=== PATIENT | female | born 1980 | race Caucasian/White ===

== ENCOUNTER 2021-10-31 14:24 | Emergency (ER) | payer OTHER ==
[~2021-10-31] VITALS: Ht 170.2 cm; Wt 73.0 kg
[2021-10-31 14:33] VITALS: BP 111/56
--- NOTE | 2021-10-31 15:13 | PHYS DOC ---
Past History Past Surgical History: No Surgical History (IGNACIO HOWARD) Alcohol Use: Occasionally (IGNACIO HOWARD) General Adult EDM: Chief Complaint: UPPER EXTREMITY INJURY HPI: HPI: Patient is a 40 year old female who presents with right upper extremity pain status post fall while chasing a puppy. Patient states she was chasing a new puppy at home wearing socks without shoes, so she slipped. Patient does not believe she outstretched her arm to catch herself, but rather landed on her arm. She reports pain from the shoulder down to her fingers, though it is most intense in the forearm. Patient states she has some "tingling" in a few of her fingers on the right hand. She denies head trauma or loss of consciousness. Patient has no other complaints at this time. (IGNACIO HOWARD) Review of Systems: Review of Systems: ROS negative or noncontributory except as mentioned in HPI. (IGNACIO HOWARD) Current Medications: Current Meds: Current Medications Medications (Trade) Dose Ordered Sig/Rosanna Start Time Stop Time Status Last Admin Dose Admin Ketorolac Tromethamine (Toradol Im) 60 mg 1X ONCE 10/31/21 15:15 10/31/21 15:16 (IGNACIO HOWARD) Allergies: Allergies: Allergies Coded Allergies Type Severity Reaction Last Updated Verified No Known Drug Allergies 10/31/21 No (IGNACIO HOWARD) Physical Exam: PE: Constitutional: Well developed, well nourished, no acute distress, non-toxic appearance. HENT: Normocephalic, atraumatic, bilateral external ears normal, nose normal. Eyes: EOMI, conjunctiva normal, no discharge. Neck: Normal range of motion, no tenderness. Skin: Warm, dry, no erythema, no rash, no ecchymosis, no abrasion, no laceration. Back: No step-off, no midline tenderness, no paraspinal tenderness. Extremities: Right upper extremity tender along the proximal forearm, active and passive range of motion of the shoulder intact, patient cannot fully extend elbow secondary to pain, beauty therapist strength 5/5 bilaterally, radial pulses 2+ and symmetrical. Neurologic: Alert and oriented x4, steady and symmetrical gait, no focal deficits noted. (IGNACIO HOWARD) Current Patient Data: Vital Signs: Vital Signs Date Time Temp Pulse Resp B/P (MAP) Pulse Ox O2 Delivery O2 Flow Rate FiO2 10/31/21 14:33 98.3 86 16 111/56 (74) 99 Room Air (IGNACIO HOWARD) Radiology/Procedures: Radiology/Procedures: XR FOREARM_RIGHT 2 VIEWS, XR HAND_RIGHT 3 VIEWS DATE: 10/31/2021 2:53 PM INDICATION: fall with pain COMPARISON: None. FINDINGS: Acute proximal radius fracture with slightly displaced transversely oriented fracture of the radial neck, not appearing to extend into the articular surface of the radial head. No acute fracture of the hand. Joint spaces are maintained. IMPRESSION: 1. Acute slightly displaced radial neck fracture, without definite extension to the radial head articular surface. 2. No acute fracture of the hand. Electronically signed by: Donald Hernandez MD (10/31/2021 3:43 PM) [id number] (IGNACIO HOWARD) Heart Score: C/O Chest Pain: No (IGNACIO HOWARD) Course & Med Decision Making: Course & Med Decision Making Pertinent Labs and Imaging studies reviewed. (See chart for details) Patient is an otherwise healthy 40-year-old female who presents with right upper extremity pain after falling while chasing a puppy. Patient denies falling onto her outstretched hand, but rather fell directly onto her arm. Work-up today will include plain films as well as Toradol injection for pain management. Patient, patient still has significant pain. Tramadol was administered p.o. Plain films show a very minimally displaced radial neck fracture. Spoke to Dr. Rosales with [facility] icu specialist, who concurs that sugar-tong splint and sling application with follow-up within the next week are appropriate. Patient was informed of follow-up plan. She understands and is agreeable to discharge plan. (IGNACIO HOWARD) Course & Med Decision Making I was the Attending physician on the above date of service of this patient. This patient was evaluated, examined, treated, and dispositioned from the emergency department by the mid-level practitioner. I reviewed radiographic findings and recommended midlevel practitioner to review case with on-call orthopedic attending. I agreed to plan of care as recommended by specialist for splinting, pain control and close outpatient follow-up Electronically signed, Victoria Sosa DO (VICTORIA SOSA DO) Poli Disclaimer: Poli Disclaimer: This electronic medical record was generated, in whole or in part, using a voice recognition dictation system. (IGNACIO HOWARD) Splinting Patient informed of findings. Splint and sling applied by NATALIE Hooker. The splint is checked by myself, with appropriate stabilization of the injury. Distal capillary refill is in 2 seconds and distal neurologic function intact. (IGNACIO HOWARD) Departure Departure: Impression: Primary Impression: Displaced fracture of neck of right radius, initial encounter for closed fracture Disposition: HOME / SELF CARE / HOMELESS Condition: STABLE Referrals: MISTY MOSS DO, M[facility] (PCP) Patient Instructions: Cast or Splint Care, [id number], Radial Head Fracture, [id number] Additional Instructions: EMERGENCY DEPARTMENT GENERAL DISCHARGE INSTRUCTIONS Thank you for coming to [facility] (ED) today and trusting us with you care. We trust that you had a positive experience in our Emergency Department. If you wish to speak to the department management, you may call the director at [phone]. YOUR FOLLOW UP INSTRUCTIONS ARE FOLLOWS: 1. Follow up with [facility] orthopedic specialists. You may contact them at . You may also contact your primary care doctor for assistance in obtaining follow-up care. If you do not have a primary doctor, please ask for a resource list of physicians or clinics that may be able to assist you. 2. The emergency provider has interpreted your images. The radiology emergency medicine specialist also reviewed them. If there is a change in the findings, you will b e notified in 48 hours when at all possible. 3. A lab test or culture has been done, your results will be reviewed and you will be notified if you need a change in treatment. 4. Follow instructions verbalized to you and refer to the printouts if needed. ADDITIONAL INSTRUCTIONS AND INFORMATION: 1. Your care today has been supervised by a physician who is specially trained in emergency care. Many problems require more than one evaluation for a complete diagnosis and treatment. We recommend that you schedule your follow up appointment as recommended to ensure complete treatment of you illness or injury. If you are unable to obtain follow up care and continue to have a problem, or if your condition worsens, we recommend that you return to the ED. 2. We are not able to safely determine your condition over the phone nor are we able to give sound medical advice over the phone. For these safety reasons, if you call for medical advice we will ask you to come to the ED for further evaluation. 3. If you have any questions regarding these discharge instructions please call the ED at [phone]. SAFETY INFORMATION: In the interest of safety, wellness, and injury prevention; we encourage you to wear your seat belt, if you smoke; quite smoking, and we encourage family to use a protective helmet for bicycling and other sporting events that present an increased risk for head injury. IF YOUR SYMPTOMS WORSEN OR NEW SYMPTOMS DEVELOP, OR YOU HAVE CONCERNS ABOUT YOUR CONDITION; OR IF YOUR CONDITION WORSENS WHILE YOU ARE WAITING FOR YOUR FOLLOW UP APPOINTMENT; EITHER CONTACT YOUR PRIMARY CARE DOCTOR, THE PHYSICIAN WHOSE NAME AND NUMBER YOU WERE GIVEN, OR RETURN TO THE ED IMMEDIATELY. Scripts Tramadol Hcl (TRAMADOL HCL) 50 Mg Tablet 50 MG PO PRN Q6HRS PRN for PAIN for 5 Days, #20 TAB Prov: IGNACIO HOWARD 10/31/21 IGNACIO HOWARD Oct 31, 2021 15:13 VICTORIA SOSA DO Nov 03, 2021 02:28
[2021-10-31] MEDS ORDERED: KETOROLAC 60 MG/2 ML VIAL. IM ONE (15:15)
--- NOTE | 2021-10-31 15:46 | RAD ---
XR FOREARM_RIGHT 2 VIEWS, XR HAND_RIGHT 3 VIEWS DATE: 10/31/2021 2:53 PM INDICATION: fall with pain COMPARISON: None. FINDINGS: Acute proximal radius fracture with slightly displaced transversely oriented fracture of the radial n ángel, not appearing to extend into the articular surface of the radial head. No acute fracture of the hand. Joint spaces are maintained. IMPRESSION: 1. Acute slightly displaced radial neck fracture, without definite extension to the radial head artic ular surface. 2. No acute fracture of the hand. Electronically signed by: Donald Hernandez MD (10/31/2021 3:43 PM) [id number]
[2021-10-31] MEDS ORDERED: traMADol 50 MG TABLET PO ONE (16:15)
[2021-10-31] MEDS ORDERED: TRAM50TA PO (16:25)
== END 2021-10-31 16:36 | disposition home or self-care (01) ==
LOC: ER 14:24
DX: S52.131A Displaced fracture of neck of right radius, initial encounter for closed fracture (principal); W18.39XA Other fall on same level, initial encounter; Y93.89 Activity, other specified; Y92.89 Other specified places as the place of occurrence of the external cause; Y99.8 Other external cause status
CPT/HCPCS: 29125; 73090; 73130; 96372; 99284; J1885